=== PATIENT | male | born 1995 | race Caucasian/White ===

== ENCOUNTER → 2023-03-29 | Outpatient (CLI) | payer BC, SELFPAY ==
[2023-03-29 17:16] LABS: Absolute Lymphocyte Count 2.03 X10^3/uL (0.83-4.51); Absolute Neutrophil Count 2.6 X10^3/uL (2.0-7.7); Basophil% 1.8 % (0-1); Eosinophil# 0.32 X10^3/uL; Eosinophils% 5.8 % (0-5); Hematocrit 46.4 % (40-54); Lymphocyte # 2.03 X10^3/ul (0.83-4.51); Lymphocyte % 36.7 % (19-41); Mean Corp Hgb Conc 34.5 g/dL (32-36); Mean Corpuscular Hgb 30.7 pg (27.0-32.0); Mean Corpuscular Volume 88.9 fL (80-94); Monocyte# 0.45 X10^3/uL; Monocyte% 8.1 % (0-10); NRBC Flagged by Analyzer 0 % (0-5); Neutrophil # 2.61 X10^3/uL (2.7-7.7); Neutrophil % 47.2 % (47-70); Platelet Count 208 K/mm3 (150-450); RBC Distribution Width CV 11.6 % (11.6-14.6); RBC Distribution Width SD 37.2 fl (35.1-43.9); Red Blood Count 5.22 M/mm3 (4.6-6.2); White Blood Count 5.5 K/mm3 (4.4-11.0)
[2023-03-29 17:54] LABS: Vitamin B12 664 pg/mL (211-911); Vitamin D,25 Hydroxy 46.1 ng/mL
[2023-03-29 18:03] LABS: ALB/GLOB Ratio 1.3 RATIO (0.9-2.4); AST(SGOT) 14 U/L (15-37); Alanine Aminotransfer ALT/SGPT 26 U/L (16-61); Albumin, Serum 4.4 g/dL (3.2-5.0); Alkaline Phosphatase 78 U/L (45-117); Anion Gap 4 (5-15); BUN 12 mg/dL (7-18); BUN/Creat Ratio 11.2 RATIO (10-20); Calcium,Total 9.7 mg/dL (8.5-10.1); Chloride 106 mmol/L (98-107); Cholesterol 206 mg/dL (200); Creatinine, Serum 1.07 mg/dL (0.70-1.30); EST Glomerular Filtration Rate 89 mL/min (>60); Est Glom Filt Rate - Afr Amer 108 mL/min (>60); Globulin 3.4 g/dL (2.2-4.2); Glucose 99 mg/dL (74-106); High Density Lipoprotein 64 mg/dL; Iron 104 ug/dL (65-175); Potassium 3.7 mmol/L (3.5-5.1); Protein, Total 7.8 g/dL (6.4-8.2); Sodium Level 141 mmol/L (136-145); T4 Free Direct 0.94 ng/dL (0.76-1.46); Thyroid Stim Hormone (TSH) 1.52 uIU/mL (0.358-3.74); Triglycerides 78 mg/dL; Very Low Density Lipoprotein 16 mg/dL (5-40)
[2023-04-06 16:10] LABS: VITAMIN B6 24.4 ug/L (3.4-65.2)
== END | disposition home or self-care (01) ==
PROVIDERS: PCP Pediatrics
DX: Z79.899 Other long term (current) drug therapy (principal); F40.10 Social phobia, unspecified
CPT/HCPCS: 36415; 80053; 80061; 82306; 82607; 83540; 84207; 84439; 84443; 84481; 84482; 85025

== ENCOUNTER 2024-04-22 12:35 | Emergency (ER) | payer MEDICAID, SELFPAY ==
[2024-04-22 12:37] VITALS: BP 129/68; PULSE 106; RESP 8; TEMP 36.7; O2SAT 99; BMI 23.8
--- NOTE | 2024-04-22 12:44 | EX.ED.VIS.EY ---
HPI History of Present Illness Chief Complaint: Eye Problem Informant: patient Onset/Context/Timing Location: Left Eye Onset: Days (4) Context: Gradual Onset Timing: Continuous Worsened by: Closing his eyes Relieved by: Cold compresses Associated Symptoms Associated Symptoms - Eyes: Burning, Drainage (Watery), Eyelid swelling, Pain, Photophobia and Redness; Negative for Crusting, Foreign body sensation, Itching or Matting Visual Changes: left: Blurred vision History of injury: No Visual correction: None Narrative Narrative: Patient presents with left eye pain that has been getting worse over the last 4 days. Patient describes his pain as sharp. Patient states it is worse whenever he closes his eyes. Patient states he gets better with cold compresses. Patient admits to some burning and redness to his left eye. Patient also admits to some swelling of his eyelid. Patient states he went to urgent care and was diagnosed with conjunctivitis. Patient was put on antibiotic ointment which has not been helping. PFSH PFS Medical History no medical history no medical history Home Medications ?Medication ?Instructions ?Recorded ?Last Taken ?Type erythromycin 5 mg/gram (0.5 %) eye 0.5 inch ophthalmic (eye) BID #3.5 04/21/24 Unknown Rx ointment grams valacyclovir 1 gram tablet 1,000 mg PO TID #20 tabs 04/22/24 Unknown Rx Allergy/AdvReac Type Severity Reaction Status Date / Time No Known Allergies Allergy Verified 04/22/24 12:36 Surgical History no surgical history no surgical history Social History (Updated 04/22/24 @ 12:[address] Tyree Kumar, DO) Smoking Status: Never smoker alcohol intake: never substance use type: marijuana ROS ROS ED Constitutional Constitutional ED: Denies chills or fever(s) Eyes Eyes: Denies blurry vision or change in vision ENT ENT ED: Reports rhinorrhea; Denies sore throat Cardiovascular Cardiovascular: Denies chest pain or palpitations Respiratory/Chest Respiratory/Chest: Denies cough or dyspnea Gastrointestinal Gastrointestinal: Denies nausea or vomiting Genitourinary Genitourinary ED: Denies dysuria or hematuria Musculoskeletal Musculoskeletal: Denies back pain or neck pain Integumentary Denies abscess or rash Neurologic Neurologic: Denies headache(s) or weakness Allergic/Immunologic Allergic/Immunologic ED: Denies mouth swelling or urticaria EXAM Physical Exam Const Vital Signs: 04/22/24 12:37 Temperature 98.1 F Temperature Source Oral Pulse Rate 106 H Respiratory Rate 8 L Blood Pressure 129/68 H Blood Pressure Mean 88 Pulse Ox 99 Oxygen Delivery Method Room Air Positive well nourished and well developed General Appearance ED: well developed and NAD HEENT atraumatic and trauma Eyes Eyes Narrative: Pupils are equal, round, and reactive to light bilaterally. Extraocular muscles are intact. Conjunctiva was injected on the left. There is no tenderness over the temporal artery. Tetracaine and fluorescein dye was applied. Under slit-lamp examination, there is a dendritic lesion going diagonally across the cornea from the upper outer quadrant to the inferior medial quadrant. Anterior chamber was clear. There is no hyphema. Intraocular pressure was measured and was normal at 4. Neck supple and no JVD Resp normal respiratory effort and clear to auscultation bilaterally Cardio regular rate and regular rhythm GI non-tender and non-distended Palpation: soft Neuro oriented x3, CN's II-XII intact bilaterally, moves all extremities and no sensory deficits noted Sensorium / Orientation: alert Motor Exam: strength 5/5 throughout MDM MDM MDM Narrative Medical decision making narrative: Differential diagnosis includes hordeolum, chalazion, conjunctivitis, glaucoma, foreign body, and corneal abrasion. Patient and family requested CT scan to check for sinusitis. CT scan of the sinuses was obtained to assess for sinusitis. Radiography Diagnostic Testing: CT scan of the sinuses was obtained. There is some mild left maxillary sinusitis. Management Discussion w/another healthcare provider: Pulmonologist/Intensivist (Dr. Silva from ophthalmology) Treatment and Re-Evaluation Narrative: Visual acuity was obtained. It was 20/40 in the left eye, 20/50 in the right eye, and 20/25 in both eyes. Patient was advised of his findings. Patient was given a dose of Valtrex here. Patient was given a prescription for Valtrex. Patient was instructed to continue the erythromycin ophthalmic ointment. Patient was instructed to follow-up with Dr. Silva tomorrow morning at 8 AM. Patient understands and is agreeable with the plan. All questions were answered. 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
[2024-04-22] MEDS: Tetracaine 0.5% Ophthalmic Bottle 1 DRP OPHTHALMIC (13:05)
[2024-04-22] MEDS: Fluorescein 1 MG STRIP 1 STRIP OPHTHALMIC (13:05)
--- NOTE | 2024-04-22 13:17 | CT_ITS ---
PROCEDURE: SINUS/FACIAL BONE REASON FOR EXAM: Sinus headache TECHNIQUE: CT of the paranasal sinuses without contrast. COMPARISON: None. FINDINGS: Frontal: Frontal sinuses and frontoethmoidal recesses appear clear. Ethmoid: Mild thickening Sphenoid: Sphenoid sinuses and sphenoethmoidal recesses appear clear. Maxillary: [id number]-[id number] thickening bilaterally, [id number] Turbinates: Unremarkable. Nasal Septum: Midline. No large nasal septal spur. Mastoids/Middle Ears: Clear at visualized levels. Visualized intracranial structures are unremarkable. No suspicious contrast enhancement. CT/Sinus/Facial Bone IMPRESSION: [id number] chronic sinusitis One or more dose reduction techniques were used (e.g., Automated exposure contr ol, adjustment of the mA and/or kV according to patient size, use of iterative reconstruction technique). Reading Location: [facility]
[2024-04-22 14:36] VITALS: BP 128/77; PULSE 74; RESP 18; O2SAT 95
[2024-04-22 14:57] VITALS: BP 128/77; PULSE 74; RESP 18; TEMP 36.6; O2SAT 95
== END 2024-04-22 14:57 | disposition home or self-care (01) ==
PROVIDERS: Emergency Provider Emergency Medicine; PCP Family Medicine; Referring Provider Emergency Medicine; Visit Provider Emergency Medicine
DX: B00.52 Herpesviral keratitis (principal); H53.8 Other visual disturbances
CPT/HCPCS: 70486; 99284

== ENCOUNTER → 2024-09-17 | Outpatient (CLI) | payer MEDICAID, SELFPAY ==
[2024-09-17 17:13] LABS: Hematocrit 45.5 % (40-54); Hemoglobin 16.1 g/dL (13.0-16.5); Immature Granulocytes Count 0.020 X10^3/uL (0.0-0.0); Mean Corp Hgb Conc 35.4 g/dL (32-36); Mean Corpuscular Volume 88.9 fL (80-94); Mean Platelet Vol. 11.4 fl (6.2-12.0); NRBC Flagged by Analyzer 0 % (0-5); Platelet Count 192 K/mm3 (150-450); RBC Distribution Width CV 11.5 % (11.6-14.6); RBC Distribution Width SD 37.1 fl (35.1-43.9); Red Blood Count 5.12 M/mm3 (4.6-6.2); White Blood Count 5.0 K/mm3 (4.4-11.0)
[2024-09-17 17:26] LABS: AST(SGOT) 30 U/L (<=37); Alanine Aminotransfer ALT/SGPT 25 U/L (<=46); Albumin, Serum 4.7 g/dL (3.5-5.0); Alkaline Phosphatase 93 U/L (40-129); Anion Gap 12 (5-15); BUN 15 mg/dL (4-19); BUN/Creat Ratio 14.3 RATIO (10-20); Calcium,Total 9.6 mg/dL (7.6-11.0); Carbon Dioxide 25.5 mmol/L (21.0-32.0); Chloride 104 mmol/L (98-108); Globulin 2.4 g/dL (2.2-4.2); Glucose 91 mg/dL (70-99); Potassium 3.7 mmol/L (3.3-5.1)
[2024-09-17 17:40] LABS: CRP < 3.00 mg/L (0.0-3.0)
[2024-09-19 14:09] LABS: ANTINUCLEAR ANTIBODIES DIRECT Negative (Negative)
== END | disposition home or self-care (01) ==
LOC: BIMLAB 14:15
PROVIDERS: PCP Internal Medicine; Referring Provider Internal Medicine; Visit Provider Internal Medicine
DX: M19.90 Unspecified osteoarthritis, unspecified site (principal); K59.00 Constipation, unspecified
CPT/HCPCS: 86225; 36415; 80053; 84439; 84443; 85025; 85652; 86038; 86140; 86200; 86431

== ENCOUNTER → 2025-01-10 | Outpatient (CLI) | payer MEDICAID, SELFPAY | END | disposition home or self-care (01) | LOC: SL 13:23 | PROVIDERS: PCP Internal Medicine; Referring Provider Student in an Organized Health Care Education/Training Program; Visit Provider Student in an Organized Health Care Education/Training Program | DX: G47.10 Hypersomnia, unspecified (principal) | CPT/HCPCS: 95806 ==